=== PATIENT | female | born 1950 | race Caucasian/White ===

== ENCOUNTER 2021-12-27 10:22 | Outpatient (CLI) | payer MEDICARE, OTHER, SELFPAY ==
--- NOTE | 2022-01-02 08:00 | WPDHOLTEREM ---
Holter/Event Monitor Holter/Event Monitor Date of procedure: 12/27/21 Holter/Event Procedure: 48 Hr Holter Monitor Indications: Tachycardia Conclusion: 1. 48 hour holter monitor on 12/27/21. 2. Underlying rhythm is sinus rhythm. HR range 52-135 bpm; average HR 79 bpm. 3. There are 22 premature supraventricular complexes. No supraventricular tachycardia. 4. There are 88 premature ventricular complexes and 1 ventricular couplet. No ventricular tachycardia. 5. No sinoatrial or atrioventricular blocks. No significant pauses greater than 2 seconds. 6. No symptoms available for correlation.
== END 2021-12-27 10:23 | disposition home or self-care (01) ==
PROVIDERS: Visit Provider Student in an Organized Health Care Education/Training Program
DX: R00.0 Tachycardia, unspecified (principal)
CPT/HCPCS: 93225; 93226

== ENCOUNTER 2023-07-28 09:26 | Outpatient (CLI) | payer OTHER, SELFPAY ==
--- NOTE | ~2023-07-28 | DEXA_ITS ---
Bone Density Report Name: JOHNNY BHAGAT Age: 72 Sex: Female Ethnicity: White Date of : 1950 Indication: postmenopausal; screening for osteoporosis; height loss; prior fracture; Referring Provider: CARLA, JEET Study: Bone densitometry was performed. Exam Date: July 28, 2023 Accession number: [id number] Bone Density: Region BMD T-score Z-score Classification AP Spine(L1-L4) 0.999 -0.4 2.0 Normal Femoral Neck (Left) 0.603 -2.2 -0.1 Osteopenia Total Hip (Left) 0.625 -2.6 -0.8 Osteoporosis Femoral Neck (Right) 0.583 -2.4 -0.3 Osteopenia Total Hip (Right) 0.629 -2.6 -0.8 Osteoporosis Total Hip Mean 0.627 -2.6 -0.8 Osteoporosis World Health Organization criteria for BMD impression classify patients as: Normal (T-score at or above -1.0), Osteopenia (T-score between -1.0 and -2.5), or Osteoporosis (T-score at or below -2.5). 10-year Fracture Risk: FRAX not reported because: Some T-score for Spine Total or Hip Total or Femoral Neck at or below -2.5 Treated for osteoporosis Clinical Information Provided by Patient: Has had a low trauma fracture Is being treated for osteoporosis Has used the following medications: Fosamax (i.e. alendronate) Patient maximum height was 70 Menopause Age: 40 Drinks caffeinated beverages Onset of menses at age 11 Number of children 1 Impression: The patient has established osteoporosis, based on the Left Total Hip T-score and the existence of a prior fracture. The patient has risk factors, including: previous fracture. Discussion: It is important to ask patients whether they are taking their medications and to encourage continued and appropriate compliance with their osteoporosis therapies to reduce fracture risk. It is also important to review their risk factors and encourage appropriate calcium and vitamin D intakes, exercise, fall prevention and other lifestyle measures. Follow-Up: Consider a repeat BMD and Vertebral Fracture Assessment (VFA) exam in 2 years or sooner if medically necessary, to reassess this patient's status. Reported by: UVALDO on 07/28/2023 10:15:00 AM. Reviewed, dictated and finalized at location ADebbie CARUSO
--- NOTE | ~2023-07-28 | MM_ITS ---
EXAMINATION: MM screening yvonne BI w lindsey HISTORY: Screening mammogram TECHNIQUE: Craniocaudal and mediolateral oblique 3-D tomosynthesis images were obtained and synthetic 2-D images were generated. Bilateral rotated lateral CC views. CAD analysis was submitted and interp reted. COMPARISON: No prior mammogram is available for comparison at this institution. BREAST PARENCHYMAL COMPOSITION: The breasts are heterogeneously dense, which may obscure small masses . FINDINGS: There are bilateral mammographic asymmetries and bilateral indeterminate microcalcification s. Bilateral diagnostic mammography with magnification views is recommended, in addition to bilateral br east ultrasound examination. IMPRESSION: 1. Bilateral mammographic asymmetries and indeterminate calcifications 2. Bilateral diagnostic mammography and breast ultrasound examination are recommended BI-RADS Category 0: Incomplete: Needs additional imaging evaluation. Reviewed, dictated and finalized at location A. IMPRESSION: 1. Bilateral mammographic asymmetries and indeterminate calcifications 2. Bilateral diagnostic mammography and breast ultrasound examination are recom mended BI-RADS Category 0: Incomplete: Needs additional imaging evaluation.
== END 2023-07-28 09:27 | disposition home or self-care (01) ==
PROVIDERS: Visit Provider Student in an Organized Health Care Education/Training Program
DX: Z12.31 Encounter for screening mammogram for malignant neoplasm of breast (principal); M81.0 Age-related osteoporosis without current pathological fracture; R92.8 Other abnormal and inconclusive findings on diagnostic imaging of breast; M85.852 Other specified disorders of bone density and structure, left thigh; M85.851 Other specified disorders of bone density and structure, right thigh
CPT/HCPCS: 77063; 77067; 77080

== ENCOUNTER 2023-11-03 10:34 | Outpatient (CLI) | payer OTHER, SELFPAY ==
--- NOTE | ~2023-11-03 | MM_ITS ---
EXAMINATION: MM diagnostic yvonne BI w lindsey HISTORY: Bilateral mammographic asymmetries in indeterminate microcalcifications reported on 3 screening mammogram TECHNIQUE: Additional 3-D tomosynthesis images of both breasts were performed and synthetic 2-D image s were generated. Magnification views of the right breast. CAD analysis was submitted and interpreted . COMPARISON: 07/28/2023, 08/15/2020 bilateral screening mammogram examinations 10/10/2019diagnostic right mammogram 06/02/2018 bilateral screening mammogram BREAST PARENCHYMAL COMPOSITION: The breasts are heterogeneously dense, which may obscure small masses . FINDINGS: There is a large area of asymmetric multinodular increased density in the very posterior up per right breast best and axillary area demonstrated on MLO view, consistent with extravasated silico ne from prior implant, with similar finding noted on 08/15/2020 mammogram..Saline implant is again par tially imaged in the right posterior subpectoral area. There are scattered bilateral benign-appearing microcalcifications. No suspicious linear or branching microcalcifications are noted. No interval suspicious mass or new architectural distortion, skin thickening or retraction is evident . IMPRESSION: 1. Benign findings 2. Routine annual mammographic screening is recommended BI-RADS Category 2: Benign finding(s). Reviewed, dictated and finalized at location A. CATION COORDINATOR
== END 2023-11-03 10:35 | disposition home or self-care (01) ==
PROVIDERS: Visit Provider Student in an Organized Health Care Education/Training Program
DX: R92.8 Other abnormal and inconclusive findings on diagnostic imaging of breast (principal)
CPT/HCPCS: 77062; 77066; G0279

== ENCOUNTER 2024-10-25 13:31 | Outpatient (CLI) | payer OTHER, SELFPAY ==
--- NOTE | ~2024-10-25 | US_ITS ---
Left forearm ULTRASOUND Ordering provider: Rod Gómez, DO History: . L arm swelling . Comparison: None. FINDINGS/impression: No definite masses or other abnormality seen. Reviewed, dictated and finalized at location A. R SALES ENERGY ADVISOR
== END 2024-10-25 13:32 | disposition home or self-care (01) ==
PROVIDERS: PCP Student in an Organized Health Care Education/Training Program; Visit Provider Student in an Organized Health Care Education/Training Program
DX: M79.89 Other specified soft tissue disorders (principal)
CPT/HCPCS: 76882

== ENCOUNTER 2025-03-28 10:10 | Outpatient (CLI) | payer MEDICARE, OTHER, MEDICAID, SELFPAY ==
--- NOTE | ~2025-03-28 | MM_ITS ---
EXAMINATION: MM screening [facility] BI w [facility] HISTORY: Screening mammogram TECHNIQUE: Craniocaudal and mediolateral oblique 3-D tomosynthesis images were obtained and synthetic 2-D images were generated. CAD analysis was submitted and interpreted. COMPARISON: 07/28/2023, 08/15/2020 BREAST PARENCHYMAL COMPOSITION:Not Dense. There are scattered areas of fibroglandular density. FINDINGS: Stable irregular areas of marked hyperdensity in the upper, posterior right breast compatib le with extravasated silicone from right breast implant. Findings are similar to prior exam. No suspi cious mass, calcification, or architectural distortion are identified in either breast to suggest mal ignancy. There has been no suspicious interval change. IMPRESSION: No mammographic evidence of malignancy. Recommend routine screening mammography in one year. BI-RADS Category 2: Benign finding(s). Reviewed, dictated and finalized at [facility].
--- OUTSIDE RECORDS SUMMARY | 2025-03-28 10:23 | XMS_ITS | Clinical Summary ---
Author Organization [facility] Address [address] [place] [address] Care Team Providers Care Junior Web Developer Name Role Phone Rod Gómez Primary Care Provider + Allergies Active Allergy Reactions Criticality Noted Date Comments Codeine Nausea and Vomiting Medium 03/29/2014 Medications alendronate (FOSAMAX) 70 MG tabletIndications:Osteoa rthrosis Take 1 tablet (70 mg total) by mouth every 7 days. 12 tablet 02/26/20 24 Active aspirin EC (ECOTRIN) 81 MG tabletIndications:Chroni c heart failure with preserved ejection fraction (CMS/HCC HHS/HCC) Take 1 tablet (81 mg total) by mouth daily. 90 tablet 02/26/20 24 Active carvedilol (COREG) 6.25 MG tabletIndications:Chroni c heart failure with preserved ejection fraction (CMS/HCC HHS/HCC) Take 1 tablet (6.25 mg total) by mouth 2 (two) times daily. 180 tablet 02/26/20 24 Active furosemide (LASIX) 40 MG tabletIndications:Swelli ng of lower extremity,Chronic heart failure with preserved ejection fraction (CMS/HCC HHS/HCC) Take 1 tablet (40 mg total) by mouth daily as needed (swelling). 90 tablet 02/26/20 24 Active lisinopril (PRINIVIL) 10 MG tabletIndications:Essent ial hypertension Take 1 tablet (10 mg total) by mouth daily. 30 tablet 02/26/20 24 Active rosuvastatin (CRESTOR) 5 MG tabletIndications:Pure hypercholesterolemia Take 1 tablet (5 mg total) by mouth nightly at bedtime. at bedtime. 90 tablet 02/26/20 24 Active vitamin D3 (VITAMIN D) 25 mcg tabletIndications:Vitami n D deficiency Take 1 tablet (1,000 Units total) by mouth daily. 90 tablet 02/26/20 24 Active acetaminophen (TYLENOL) 500 MG tabletIndications:Chroni c pain of both knees Take 2 tablets (1,000 mg total) by mouth every 8 (eight) hours as needed for Pain. 180 tablet 11 09/20/20 24 Active clonazePAM (KLONOPIN) 0.25 MG disintegrating tabletIndications:Recurr ent major depressive disorder, in full remission Take 1 tablet (0.25 mg total) by mouth 3 (three) times daily as needed. 90 tablet 09/20/20 24 Active Active Problems Problem Noted Date Diagnosed Date Takotsubo cardiomyopathy 01/27/2022 Dyspnea 09/21/2020 Leg cramps 07/10/2020 Overview (05/16/2021): Last Assessment & Plan: Current disease status: Symptomatic. Recommend she maintain good hydration. She may continue with bananas over the near future. She might consider 4 ounces of tonic water with quinine prior to bedtime. She might also consider magnesium supplementation. If her symptoms would persist we could try other agents for restless legs. Personal history of DVT (deep vein thrombosis) 0 05/01/2019 Overview (05/16/2021): Last Assessment & Plan: Current disease status: Stable. Recommend she continue to remain as active as she is able. She will continue aspirin 81 mg once daily. She may consider compressive hose or socks when necessary. Increased glucose level 03/16/2019 Overview (05/16/2021): Last Assessment & Plan: Current disease status: Asymptomatic. Recommend she have a hemoglobin A1c performed with her next blood draw. She was encouraged to be vigilant of her diet regarding sweets and refined carbohydrates. Primary localized osteoarthrosis of left lower l eg 12/24/2018 Overview (05/16/2021): Last Assessment & Plan: Current disease status: Stable. See recommendation for osteoarthritis. Pleuritic chest pain 11/29/2018 Age-related osteoporosis wit hout current pathological fracture 09/23/2017 Overview (05/16/2021): MEDICATION(S): Alendronate 70 mg 1 tablet once weekly. FRAX CALCULATION: Date of Bone Density: 05/27/2017. 38.5 % risk for major osteoporotic fracture (spine, forearm, hip, or shoulder fracture) in the next 10 years. 17.6 % risk for hip fracture in the next 10 years. Last Assessment & Plan: Current disease status: Stable Last T-score: -2.7 left femoral neck 06/2020. Osteoporosis/Osteopenia is a silent disease until complicated by the occurrence of a fracture. Recommendations include a diet that contains adequate amounts of total calcium intake (1,000 mg per day for men 50-70; 1,200 mg per day for women 51 and older and men 71 and older), incorporating dietary supplements if diet is insufficient. Calcium citrate is preferred calcium supplement when taking acid reducing medication. Recommend Vitamin D intake (800 - 1,000 IU per day), including supplements if necessary for individuals 50 and older. Recommend regular weight-bearing, balance and muscle-strengthening exercise to improve agility, strength, posture and balance; maintain or improve bone strength; and reduce the risk of falls and fractures. Recommend she continue alendronate 70 mg 1 tablet once daily. This was started 07/2017. Chronic left hip pain 03/18/2017 Overview (05/16/2021): Last Assessment & Plan: Current disease status: Improving. She reports that she had cortisone injection with Dr. Seth which has been quite helpful. She is also doing range of motion and stretching exercises. Chronic right-sided low back pain with sciatica 03/19/2016 Overview (05/16/2021): Last Assessment & Plan: Would recommend the application of moist heat 15-20 minutes per session 4-6 times daily if possible. Would also recommend gentle range of motion and stretching exercises. Recommend she continue to remain as active as she is able. She'll continue with meloxicam. She'll continue with tramadol for more severe pain when necessary. She should notify the office of any concerning development. Headache 12/27/2014 Insomnia 12/27/2014 Overview (05/16/2021): Last Assessment & Plan: Current disease status: Symptomatic. She may consider clonazepam 0.25 mg prior to bedtime as needed. She should notify the office of any concerns. Disorder of bone and cartilage 03/29/2014 Overview (05/16/2021): Last Assessment & Plan: Osteoporosis is a silent disease until complicated by the occurrence of a fracture. Recommendations include a diet that contains adequate amounts of total calcium intake (1,000 mg per day for men 50-70; 1,200 mg per day for women 51 and older and men 71 and older), incorporating dietary supplements if diet is insufficient. Recommend Vitamin D intake (800 - 1,000 IU per day), including supplements if necessary for individuals 50 and older. Recommend regular weight-bearing and muscle- strengthening exercise to improve agility, strength, posture and balance; maintain or improve bone strength; and reduce the risk of falls and fractures. Essential hypertension 03/29/2014 Overview (05/16/2021): MEDICATION(S): Lisinopril 5 mg 1 tablet by mouth once daily. Carvedilol (COREG) 6.25 mg 1 tablet by mouth 2 times daily with meals. Last Assessment & Plan: Current disease status: Stable. BP Readings from Last 3 Encounters: 01/09/21 110/62 09/21/20 (!) 147/83 07/25/20 (!) 143/72 She was advised to monitor her blood pressure. If she would consistently have systolic readings in excess of 140 and/or diastolic readings consistently above 90 she was advised to notify the office. Recommend eating a heart healthy diet limiting daily salt intake to 2000 mg. Recommend trying to maintain a healthy body weight. Aerobic exercise is beneficial. High blood pressure silently causes progressive damage to arteries and veins. This can lead to atherosclerosis (hardening of the arteries) with plaque formation and decreased blood flow. Organ systems affected include the BRAIN (with vascular dementia, TIA and stroke risk); KIDNEY (uncontrolled high blood pressure is the most common cause of kidney failure leading to dialysis) and HEART (with increased risk for heart attack and congestive heart failure. Peripheral vascular disease and retinal changes in the eye can also result from elevated blood pressure. Early intervention is critical to prevent these developments. Recommend she continue lisinopril 5 mg 1 tablet once daily and carvedilol 6.25 mg 1 tablet twice daily. Osteoarthrosis 03/29/2014 Overview (05/16/2021): Last Assessment & Plan: Current disease status: Stable and Symptomatic. Recommend she continue to try and remain as active as she is able. She has considerable arthritic changes involving her knees. She does not feel that she is at a point where she wants to pursue total knee arthroplasty. She may consider Tylenol when necessary. She has tried various injections which have not been helpful. She should notify the office of any concerning development. Personal history of colonic polyps 03/29/2014 Pure hypercholesterolemia 03/29/2014 Overview (05/16/2021): Last Assessment & Plan: Current disease status: Stable She was advised to be vigilant of her diet especially with regards to reducing foods containing saturated fat, cholesterol, simple sugars, refined carbohydrates, and processed food. Recommend lean meats, fruits, vegetables, and whole grains. Recommend at least 30 minutes of moderate intensity exercise 5 days a week. Your last cholesterol values are as follows: Lab Results Component Value Date/Time CHOLTOT 154 11/30/2018 04:44 AM CHOLTOT 184 03/24/2017 09:08 AM CHOLTOT 181 06/05/2015 09:08 AM HDL 58 11/30/2018 04:44 AM HDL 71 (H) 03/24/2017 09:08 AM HDL 82 (H) 06/05/2015 09:08 AM LDLCALC 81 11/30/2018 04:44 AM LDLCALC 88 03/24/2017 09:08 AM LDLCALC 84 06/05/2015 09:08 AM TRIGLYCERIDE 75 11/30/2018 04:44 AM TRIGLYCERIDE 126 03/24/2017 09:08 AM TRIGLYCERIDE 76 06/05/2015 09:08 AM Recommend she continue with her dietary efforts. She will try to have laboratory studies performed in the near future. Resolved Problems Problem Noted Date Diagnosed Date Resolved Date Cardiomyopathy ([facility] 05/16/2021 05/20/2021 Overview (05/16/2021): MEDICATION(S): Lisinopril 5 mg 1 tablet by mouth once daily. Carvedilol (COREG) 6.25 mg 1 tablet by mouth 2 times daily with meals. Last Assessment & Plan: Current disease status: Stable. Recommend she continue to try and remain as active as she is able. She should continue with her cardiology evaluation and treatment with Dr. Buenrostro. She will continue lisinopril 5 mg 1 tablet once daily and carvedilol 6.25 mg twice daily. Pericarditis in diseases cla ssified elsewhere ([facility]) 05/16/2021 05/16/2021 Moderate episode of recurren t major depressive disorder 09/21/2019 09/20/2024 Overview (05/16/2021): MEDICATION(S): Clonazepam 0.25 mg 1 tablet 3 times daily as needed. Last Assessment & Plan: Positive: PHQ-2 score >= 3 or PHQ-9 score >= 9 PHQ-2 Total: 0 (07/10/2020 10:00 AM) PHQ-9 Total: 3 (07/10/2020 10:00 AM) DEPRESSION PLAN OF CARE Her antidepressant medication was reviewed PHQ-2 & PHQ-9 Status: Major Depression Recurrent Moderate - Stable Plan: Responding well to current treatment plan, continue. Medications reviewed and refilled as indicated. See orders. She was encouraged to remain as active as she is able. Recommend she continue clonazepam 0.25 mg up to 3 times daily as needed. She should notify the office of any mood concerns. The suicide prevention lifeline can be reached at: [phone]. Encounters Date Type Department Care Team Description 01/25/2025 Scan [facility] INFO [facility] Scanned, Doc Med Group from Last 3 Months Immunizations Immunization Administration Dates Next Due Fluzone High Dose - >Age 65 (Prefilled Syringe) 08/27/2021,07/20/2020 Influenza (Generic) 09/01/2024, 9,08/03/2018,2016,08/27/2016,08/22/2015,08/19/2013 Influenza Adult (Generic) 09/10/2023,08/20/2022, 08/27/2021 MODERNA COVID-19 (12+) MRNA, LNP-S, PF, 100 MCG/ 0.5 ML DOSE 05/10/2021,04/12/2021 PFIZER COVID-19 (REDDY CAP), MRNA, LNP-S, PF, 30 MCG/0.3 ML JALEN-SUCROSE, IM 05/02/2022 Pneumococcal (Pneumovax 23) 03/18/2017 Pneumococcal (Prevnar 13) 10/16/2015 Family History Medical History Relation Comments pancreatic cancer Brother Cancer Father throat Heart Attack Mother Hypertension Mother Alzheimers Paternal Grandmother Relation Status Comments Brother Father Mother Paternal Grandmother Social History Tobacco Use Types Packs/Day Years Used Date Smoking Tobacco: Former Cigarettes 0.5 19 1 966 - 1985 Smokeless Tobacco: Never Tobacco Cessation:Counseling Given: Not Answered Alcohol Use Standard Drinks/Week Comments Yes 1.7 (1 standard drink = 0.6 oz p ure alcohol) less than one time a week PHQ-2 Answer Date Recorded Patient Health Questionnaire-2 Score 0 09/20/2024 Comments No Sex and Gender Information Value Date Recorded Sex Assigned at Not on file Legal Sex Female 10:11 AM CDT Gender Identity Not on file Sexual Orientation Not on file Last Filed Vital Signs Vital Sign Reading Time Taken Comments Blood Pressure 114/78 09/20/2024 12:43 PM ICE CREAM DIPPER Pulse 77 09/20/2024 12:43 PM ICE CREAM DIPPER Temperature 36.6 C (97.8 F) 09/20/2024 12:43 PM ICE CREAM DIPPER Respiratory Rate 18 09/20/2024 12:43 PM ICE CREAM DIPPER Oxygen Saturation 97% 09/20/2024 12:43 PM ICE CREAM DIPPER Inhaled Oxygen Concentration - - Weight 95.5 kg (210 lb 9.6 oz) 09/20/2024 12:43 PM ICE CREAM DIPPER Height 175.3 cm (5' 9 ) 09/20/2024 12:43 PM ICE CREAM DIPPER Body Mass Index 31.1 09/20/2024 12:43 PM ICE CREAM DIPPER Plan of Treatment Upcoming Encounters Date Type Department Care Team (Late st Contact Info) Description 06/27/2025 9:20 AM CDT Office Visit [facility] Family & Internal [address] [phone] Rod Gómez, DO [address] [place] [id number] 06/27/2025 10:20 AM CDT Office Visit [facility] Internal [address] [phone] Rod Gómez, DO [address] [place] [address] Health Maintenance Due Date Last Done Comments DTaP, Tdap and Td Vaccines (1 - Tdap) 1969 Annual Medicare Wellness Visit 2013 RSV Immunization or 60+ Years (1 - 1-dose 75+ series) 2023 PHQ-2 (Physician [place]) 11/16/2024 09/20/2024 Zoster Vaccines (1 of 2) 09/20/2025 Pos tponed from 1998 (Patient Refused) COVID-19 Vaccine ( season) 2112 05/02/2022, 05/10/2021, 04/12/2021 Postponed from 07/17/2024 (Going to Outside Clinic) Pneumococcal Vaccine: 50+ Years Completed 03/18/2017, 10/16/2015 Colorectal Cancer Screening Colonoscopy (10 Years) Discontinued 07/02/2018 Hepatitis C Completed 10/07/2022 Dexa Scan (General) Completed 07/28/2023, 08/15/2020, 08/15/2020, Additional history exists Meningococcal B Vaccine Aged Out No l onger eligible based on patient's age to complete this topic Meningococcal Vaccine Aged Out No ej tasha eligible based on patient's age to complete this topic RSV Immunizations Under 20 Months Aged Out No longer eligible based on patient's age to complete this topic Procedures Procedure Name Priority Date/Time Associated Diagnosis Comments BONE DENSITY GENERIC (SCAN ORDER) Routine 07/28/2023 HEPATITIS C ANTIBODY Routine 10/07/2022 11:28 AM ICE CREAM DIPPER Pure hypercholesterolemia Age-related osteoporosis without current pathological fracture Takotsubo cardiomyopathy Vitamin D deficiency Need for hepatitis C screening test COLONOSCOPY GENERIC (SCAN ORDER) Routine 07/02/2018 from Last 3 Months or Most Recently Relevant to Health Maintenance Results * BONE DENSITY (07/28/2023) Anatomical Region Laterality Modality Other us Doc Med Group Scanned SCANNING Final Resu lt * HEPATITIS C ANTIBODY (10/07/2022 11:28 AM ICE CREAM DIPPER) HEPATITIS C AB NON-REACTI VE NON-REACT SANDRA 10/07/2022 10:10 PM ICE CREAM DIPPER [facility] Comment: ANTIBODIES TO HCV NOT DETECTED. DOES NOT EXCLUDE THE POSSIBILITY OF EXPOSURE TO HCV. 10/07/2022 11:2 8 AM ICE CREAM DIPPER Rod Gómez DO LABORATORY Final Re sult [facility] [address] [place] [address], [place] [phone] [id number] * COLONOSCOPY (07/02/2018) Documents Scanned SCANNING Final Result Performing Organization Address [facility]/State/ZIP Co de Phone Number [facility] from Last 3 Months or Most Recently Relevant to Health Maintenance Insurance [facility]ICARE [facility] [place] [address] [place] [address] Advance Directives Documents on File Type Date Recorded Patient Traffic Control Signaler Expl anation Advance Directives and Livin g Will 10/20/2022 7:55 AM POLST Care Teams Junior Web Developer Relationship Specialty Start Date End Date Rod Gómez DO [address] [place] [id number] PCP - General FAMILY PRACTICE 05/16/21
--- OUTSIDE RECORDS SUMMARY | 2025-03-28 10:23 | XMS_ITS | Clinical Summary ---
Author Organization [facility] Medical Office [place] Address [address] [address] [place] [id number] Care Team Providers Care Research Home Economist Name Role Phone Unavailable Primary Care Provider Unavailabl e Allergies Active Allergy Reactions Criticality Noted Date Comments Codeine Nausea and Vomiting Medium 03/29/2014 Medications aspirin (ECOTRIN EC) 81 mg Tablet, Delayed Release (E.C.) Take 81 mg by mouth daily. Active lisinopriL (PRINIVIL) 10 mg tablet TAKE 1 TABLET BY MOUTH EVERY DAY 90 Tablet 6 0 Active alendronate (FOSAMAX) 70 mg tabletIndications :Age-related osteoporosis without current pathological fracture TAKE 1 TABLET BY MOUTH EVERY 7 DAYS ON EMPTY STOMACH WITH 8OZ OF WATER AND STAY UPRIGHT FOR 30 MINUTES. TAKE BEFORE OTHER MEDICATIONS. 12 Tablet 3 1 Active carvediloL (COREG) 3.125 mg tablet TAKE 2 TABLETS (6.25 MG) BY MOUTH 2 TIMES DAILY WITH MEALS. 360 Tablet 1 1 Active clonazePAM (KlonoPIN RAPID DISSOLVE) 0.25 mg Tablet, Rapid DissolveIndicatio ns:Moderate episode of recurrent major depressive disorder (CMS/HCC) DISSOLVE 1 TABLET (0.25 MG) BY MOUTH 3 TIMES DAILY NEEDED FOR ANXIETY. 45 Tablet 1 Active Active Problems Patient Care Coordination No te Formatting of this note migh t be different from the original. Video Production Assistant - Jan Buenrostro MD Problem Noted Date Diagnosed Date Dyspnea 09/21/2020 Leg cramps 07/10/2020 Assessment & Plan (07/10/2020 10:58 AM CDT): Current disease status: Symptomatic. Recommend she maintain good hydration. She may continue with bananas over the near future. She might consider 4 ounces of tonic water with quinine prior to bedtime. She might also consider magnesium supplementation. If her symptoms would persist we could try other agents for restless legs. Moderate episode of recurrent major depressive d isorder 09/21/2019 Overview (01/10/2020): MEDICATION(S): Clonazepam 0.25 mg 1 tablet 3 times daily as needed. Assessment & Plan (01/09/2021 10:51 AM DISBURSING OFFICER): Positive: PHQ-2 score >= 3 or PHQ-9 [...] suicide prevention lifeline can be reached at: [phone]. Assessment & Plan (07/10/2020 10:57 AM CDT): Positive: PHQ-2 score >= 3 or PHQ-9 score >= 9 PHQ-2 Total: 0 (07/10/2020 10:00 AM) PHQ-9 Total: 3 (07/10/2020 10:00 AM) DEPRESSION PLAN OF CARE Her antidepressant medication was reviewed PHQ-2 & PHQ-9 Little interest or pleasure in doing things:: Not at all (07/10/20999) Feeling down, depressed, or hopeless:: Not at all (07/10/20999) PHQ-2 Total: 0 (07/10/20999) Trouble falling or staying asleep, or sleeping too much:: More than half the days (07/10/20999) Feeling tired or having little energy:: Several Days (07/10/20999) Poor appetite or overeating:: Not at all (07/10/20999) Feeling bad about yourself-or that you are a failure or have let yourself or your family down:: Not at all (07/10/20999) Trouble concentrating on things, such as reading the newspaper or watching television:: Not at all (07/10/20999) Moving or speaking so slowly that other people could have noticed. Or the opposite-being so fidgety or restless that you have been moving around a lot more than usual:: Not at all (07/10/20999) Thoughts that you would be better off , or of hurting yourself in some way:: Not at all (07/10/20999) PHQ-9 Total: 3 (07/10/20999) Status: Major Depression Recurrent Mild - Stable Plan: Responding well to current treatment plan, continue. Medications reviewed and refilled as indicated. See orders. Recommend she continue to remain as active as she is able. She will continue with Klonopin 0.25 mg up to 3 times daily as needed. She should notify the office of any mood concerns. Assessment & Plan (02/27/2020 11:20 AM CDT): Positive: PHQ-2 score >= 3 or PHQ-9 score >= 9 PHQ-2 Total: 1 (09/21/2019 3:11 PM) DEPRESSION PLAN OF CARE Her antidepressant medication was reviewed PHQ-2 & PHQ-9 Status: Major Depression Recurrent Moderate - Stable Plan: Responding well to current treatment plan, continue. Medications reviewed and refilled as indicated. See orders. Recommend she continue to remain as active as she is able. She feels that she is coping well at this time. She notes that she had been taken clonazepam 3 times daily. She was encouraged to continue with this on an as-needed basis. She should notify the office of any concerning development. Assessment & Plan (01/10/2020 9:31 AM DISBURSING OFFICER): Positive: PHQ-2 score >= 3 or PHQ-9 score >= 9 PHQ-2 Total: 1 (09/21/2019 3:11 PM) DEPRESSION PLAN OF CARE Her antidepressant medication was reviewed PHQ-2 & PHQ-9 Status: Major Depression Recurrent Mild - Stable Plan: Responding well to current treatment plan, continue. Medications reviewed and refilled as indicated. See orders. She reports that she discontinued Paxil. She did not like the way it made her feel. She feels that she is coping well at this time. She should continue with clonazepam 0.25 mg up to 3 times daily as needed. She should continue to remain as active as she is able. She should notify the office of any mood concerns. Assessment & Plan (09/21/2019 4:07 PM DISBURSING OFFICER): Positive: PHQ-2 score >= 3 or PHQ-9 score >= 9 PHQ-2 Total: 1 (09/21/2019 3:11 PM) DEPRESSION PLAN OF CARE She was given a prescription for an antidepressant PHQ-2 & PHQ-9 Little interest or pleasure in doing things:: Not at all (09/21/191510) Feeling down, depressed, or hopeless:: Several Days (09/21/191510) PHQ-2 Total: 1 (09/21/191510) Status: Major Depression Recurrent Moderate - Suboptimal control Plan: New Onset. Discussed healthy lifestyle. Also start medication as per orders. Possible SE and expected onset of action reviewed. Recommend starting Paxil 20 mg 1 tablet once daily. She was given a prescription of Klonopin 0.25 mg which she may use up to 3 times daily as needed. She was encouraged to remain as active as she is able. She should notify the office of any mood concerns. Personal history of DVT (deep vein thrombosis) 0 05/01/2019 Assessment & Plan (01/09/2021 10:54 AM DISBURSING OFFICER): Current disease status: Stable. Recommend she continue to remain as active as she is able. She will continue aspirin 81 mg once daily. She may consider compressive hose or socks when necessary. Assessment & Plan (01/10/2020 9:31 AM DISBURSING OFFICER): Current disease status: Stable. Recommend she continue with aspirin 81 mg 1 tablet once daily. Assessment & Plan (09/21/2019 4:09 PM DISBURSING OFFICER): Current disease status: Stable. Recommend she continue with aspirin 81 mg 1 tablet once daily. She should continue with her hematology evaluation and treatment with Dr. Andrews. Elevated glucose 03/16/2019 Assessment & Plan (03/16/2019 10:19 AM CDT): Current disease status: Asymptomatic. Recommend she have a hemoglobin A1c performed with her next blood draw. She was encouraged to be vigilant of her diet regarding sweets and refined carbohydrates. Hospital discharge follow-up 12/24/2018 Assessment & Plan (02/27/2020 11:23 AM CDT): Transitional Care Attestation Lorri Miller was discharged from Inpatient on 02/23/20. Interactive communication regarding the patient's post discharge date status as documented in the patient outreach encounter. . Discharge summary obtained and reviewed yes Current and discharge medications reviewed and reconciled Yes Pertinent studies from the hospitalization, SNF or other acute stay were reviewed (including pending studies) yes Patient/Caregiver/Family education performed yes Communication with home health was performed (if needed) n/a Assessment & Plan (12/24/2018 2:14 PM DISBURSING OFFICER): Transitional Care Attestheydi Miller was discharged from Inpatient on 12/01/18. Interactive communication regarding the patient's post discharge date status. Her follow-up interval exceeds 2 weeks. Discharge summary obtained and reviewed yes Current and discharge medications reviewed and reconciled Yes Pertinent studies from the hospitalization, SNF or other acute stay were reviewed (including pending studies) yes Patient/Caregiver/Family education performed yes Communication with home health was performed (if needed) no Primary localized osteoarthrosis of left lower l eg 12/24/2018 Assessment & Plan (03/16/2019 10:18 AM CDT): Current disease status: Stable. See recommendation for osteoarthritis. Assessment & Plan (12/24/2018 2:11 PM DISBURSING OFFICER): Current disease status: Symptomatic. Would recommend a trial of diclofenac gel applied up to 4 times daily to the left knee. She should try to remain as active as she is able. She could try Tylenol arthritis in addition. She should notify the office of any concerns. Pleuritic chest pain 11/29/2018 Age-related osteoporosis wit hout current pathological fracture 09/23/2017 Overview (01/10/2020): MEDICATION(S): Alendronate 70 mg 1 tablet once weekly. FRAX CALCULATION: Date of Bone Density: 05/27/2017. 38.5 % risk for major osteoporotic fracture (spine, forearm, hip, or shoulder fracture) in the next 10 years. 17.6 % risk for hip fracture in the next 10 years. Assessment & Plan (01/09/2021 10:53 AM DISBURSING OFFICER): Current disease status: Stable Last T-score: -2.7 [...] tablet once daily. This was started 07/2017. Assessment & Plan (07/10/2020 10:58 AM CDT): Current disease status: Stable Osteoporosis/Osteopenia is a silent disease until complicated [...] 50 and older. Recommend regular weight-bearing and muscle-strengthening exercise to improve agility, strength, posture and balance; maintain or improve bone strength; and reduce the risk of falls and fractures. She will have a bone density scan performed. She should continue with alendronate 70 mg 1 tablet once daily. Assessment & Plan (02/27/2020 11:22 AM CDT): Current disease status: Stable Osteoporosis/Osteopenia is a silent disease until complicated [...] 50 and older. Recommend regular weight-bearing and muscle-strengthening exercise to improve agility, strength, posture and balance; maintain or improve bone strength; and reduce the risk of falls and fractures. Recommend she continue with alendronate 70 mg 1 tablet once weekly. Assessment & Plan (01/10/2020 9:30 AM DISBURSING OFFICER): Current disease status: Stable Osteoporosis/Osteopenia is a silent disease until complicated [...] 50 and older. Recommend regular weight-bearing and muscle-strengthening exercise to improve agility, strength, posture and balance; maintain or improve bone strength; and reduce the risk of falls and fractures. Recommend she continue with alendronate 70 mg 1 tablet once weekly. She should have a bone density scan performed this summer. Assessment & Plan (09/21/2019 4:07 PM DISBURSING OFFICER): Current disease status: Stable Osteoporosis/Osteopenia is a silent disease until complicated [...] 50 and older. Recommend regular weight-bearing and muscle-strengthening exercise to improve agility, strength, posture and balance; maintain or improve bone strength; and reduce the risk of falls and fractures. Recommend she continue with Fosamax 70 mg 1 tablet once weekly. Assessment & Plan (03/16/2019 10:17 AM CDT): Current disease status: Stable Osteoporosis/Osteopenia is a silent disease until complicated [...] 50 and older. Recommend regular weight-bearing and muscle-strengthening exercise to improve agility, strength, posture and balance; maintain or improve bone strength; and reduce the risk of falls and fractures. Recommend she continue with Fosamax 70 mg once weekly. Assessment & Plan (12/24/2018 2:10 PM DISBURSING OFFICER): Current disease status: Stable Osteoporosis/Osteopenia is a silent disease until complicated [...] 50 and older. Recommend regular weight-bearing and muscle-strengthening exercise to improve agility, strength, posture and balance; maintain or improve bone strength; and reduce the risk of falls and fractures. Recommend she continue with Fosamax 70 mg once weekly. Assessment & Plan (2018 10:22 AM DISBURSING OFFICER): Current disease status: Stable Osteoporosis/Osteopenia is a silent disease until complicated [...] 50 and older. Recommend regular weight-bearing and muscle-strengthening exercise to improve agility, strength, posture and balance; maintain or improve bone strength; and reduce the risk of falls and fractures. Recommend she continue with Fosamax 70 mg 1 tablet once weekly. Assessment & Plan (03/24/2018 9:43 AM CDT): Current disease status: Stable Osteoporosis/Osteopenia is a silent disease until complicated [...] 50 and older. Recommend regular weight-bearing and muscle-strengthening exercise to improve agility, strength, posture and balance; maintain or improve bone strength; and reduce the risk of falls and fractures. Recommend she continue with Fosamax. Assessment & Plan (09/23/2017 9:37 AM DISBURSING OFFICER): Current disease status: Asymptomatic Osteoporosis/Osteopenia is a silent disease until complicated [...] 50 and older. Recommend regular weight-bearing and muscle-strengthening exercise to improve agility, strength, posture and balance; maintain or improve bone strength; and reduce the risk of falls and fractures. FRAX CALCULATION: Date of Bone Density: 05/27/2017. 38.5 % risk for major osteoporotic fracture (spine, forearm, hip, or shoulder fracture) in the next 10 years. 17.6 % risk for hip fracture in the next 10 years. Chronic left hip pain 03/18/2017 Assessment & Plan (03/24/2018 9:44 AM CDT): Current disease status: Improving. She reports that she had cortisone injection with Dr. Seth which has been quite helpful. She is also doing range of motion and stretching exercises. Assessment & Plan (09/23/2017 9:36 AM DISBURSING OFFICER): Current disease status: Symptomatic. Her x-ray of the left hip was reviewed. She is tender over the greater trochanter. She may have trochanteric bursitis. Would recommend orthopedic referral with Dr. Seth for further evaluation. Assessment & Plan (03/18/2017 10:10 AM CDT): Symptomatic. Recommend she have an x-ray of the left hip performed. Recommend discontinuing meloxicam and trying diclofenac 75 mg once or twice daily as necessary. If her symptoms persist or worsen or there are significant findings on x-ray would recommend orthopedic referral. Chronic right-sided low back pain with sciatica 03/19/2016 Assessment & Plan (09/17/2016 9:58 AM CDT): Would recommend the application of moist heat 15-20 minutes per session 4-6 times daily if possible. Would also recommend gentle range of motion and stretching exercises. Recommend she continue to remain as active as she is able. She'll continue with meloxicam. She'll continue with tramadol for more severe pain when necessary. She should notify the office of any concerning development. Assessment & Plan (05/07/2016 3:03 PM CDT): Would recommend the application of moist heat 15-20 minutes per session 4-6 times daily if possible. Would also recommend gentle range of motion and stretching exercises. Recommend she continue to try to remain as active as she is able. She'll continue with meloxicam when necessary. She'll continue with Flexeril when necessary. She'll continue with Ultram for more significant pain when necessary. She should notify the office of any concerning development. Assessment & Plan (03/19/2016 9:49 AM CDT): Would recommend the application of moist heat 15-20 minutes per session 4-6 times daily if possible. Would also recommend gentle range of motion and stretching exercises. Recommend she continue with meloxicam. She was given a prescription of Flexeril to use mainly prior to bedtime to help with muscle relaxation. She was given a prescription of tramadol to use for more severe pain when necessary. She should try to use tramadol as least often as she is able. She'll have an x-ray of the lumbar spine performed. Stress 03/19/2016 Assessment & Plan (12/24/2018 2:11 PM DISBURSING OFFICER): Current disease status: Symptomatic. Recommend she continue to remain as active as she is able. She notes that Klonopin has been helpful. She feels that she is coping adequately. She should notify the office of any concerning development. Assessment & Plan (2018 10:22 AM DISBURSING OFFICER): Current disease status: Stable. Recommend she continue to remain as active as she is able. She will continue with clonazepam 0.5 mg once daily prior to bedtime as needed. She should notify the office of any mood concerns. Assessment & Plan (03/24/2018 9:43 AM CDT): Current disease status: Stable. She feels that she is coping well at this point in time. Continue to remain as active as she is able. She will continue with clonazepam when necessary. She should notify the office of any mood concerns. Assessment & Plan (03/19/2016 9:50 AM CDT): Recommend she continue to try remain as active as she is able. She'll continue with Klonopin when necessary. She should notify the office of any worsening. Medicare annual wellness visit, initial 10/16/20 15 Headache 12/27/2014 Insomnia 12/27/2014 Assessment & Plan (09/21/2019 4:08 PM DISBURSING OFFICER): Current disease status: Symptomatic. She may consider clonazepam 0.25 mg prior to bedtime as needed. She should notify the office of any concerns. Assessment & Plan (03/16/2019 10:18 AM CDT): Current disease status: Stable. Recommend she continue with clonazepam 0.5 mg prior to bedtime as needed. Assessment & Plan (2018 10:22 AM DISBURSING OFFICER): Current disease status: Stable. Recommend she continue with clonazepam 0.5 mg prior to bedtime when necessary. Assessment & Plan (03/24/2018 9:44 AM CDT): Current disease status: Stable. Recommend she continue with clonazepam when necessary. Assessment & Plan (03/18/2017 10:09 AM CDT): Stable. Recommend she continue with Klonopin when necessary. Assessment & Plan (09/17/2016 9:58 AM CDT): Recommend she continue with Klonopin when necessary. Assessment & Plan (05/07/2016 3:03 PM CDT): She may continue with Klonopin when necessary. Essential hypertension 03/29/2014 Overview (07/10/2020): MEDICATION(S): Lisinopril 5 mg 1 tablet by mouth once daily. Carvedilol (COREG) 6.25 mg 1 tablet by mouth 2 times daily with meals. Assessment & Plan (01/09/2021 10:54 AM DISBURSING OFFICER): Current disease status: Stable. BP Readings from [...] carvedilol 6.25 mg 1 tablet twice daily. Assessment & Plan (07/10/2020 10:57 AM CDT): Current disease status: Stable and Controlled. BP Readings from Last 3 Encounters: 07/10/20 104/70 06/18/20 (!) 155/90 03/19/20 132/68 She was advised to monitor her blood [...] to prevent these developments. Recommend she continue carvedilol 6.25 mg 1 tablet twice daily and lisinopril 5 mg 1 tablet once daily. Assessment & Plan (02/27/2020 11:20 AM CDT): Current disease status: Stable. BP Readings from Last 3 Encounters: 02/23/20 113/62 01/25/20 122/67 01/10/20 110/72 She was advised to monitor her blood [...] to prevent these developments. Recommend she continue with carvedilol 3.125 mg 1 tablet once daily and lisinopril 2.5 mg 1 tablet once daily. Assessment & Plan (01/10/2020 9:29 AM DISBURSING OFFICER): Current disease status: Stable and Controlled. BP Readings from Last 3 Encounters: 01/10/20 110/72 10/28/19 127/67 10/18/19 135/70 She was advised to monitor her blood [...] to prevent these developments. Recommend she continue with hydrochlorothiazide 25 mg 1 tablet once daily and olmesartan 20 mg 1 tablet once daily. Assessment & Plan (09/21/2019 4:07 PM DISBURSING OFFICER): Current disease status: Stable and Controlled. BP Readings from Last 3 Encounters: 09/21/19 124/80 07/26/19 132/72 05/04/19 (!) 140/72 She was advised to monitor her blood [...] to prevent these developments. Recommend she continue with IRBESARTAN 300 mg 1 tablet once daily and hydrochlorothiazide 25 mg 1 tablet once daily. Assessment & Plan (03/16/2019 10:17 AM CDT): Current disease status: Stable. BP Readings from Last 3 Encounters: 03/16/19 132/72 03/08/19 (!) 144/73 01/25/19 (!) 150/76 She was advised to monitor her blood pressure. If she would consistently have systolic readings in excess of 140 and/or diastolic readings consistently above 90 she was advised to notify the office. Recommend eating a heart healthy diet limiting daily salt intake to 2000 gm. Recommend trying to maintain a healthy body [...] to prevent these developments. Recommend she continue with IRBESARTAN 300 mg 1 tablet once daily and hydrochlorothiazide 25 mg 1 tablet once daily. Assessment & Plan (12/24/2018 2:09 PM DISBURSING OFFICER): Current disease status: Stable. BP Readings from Last 3 Encounters: 12/24/18 132/68 12/14/18 (!) 148/74 12/01/18 120/57 She was advised to monitor her blood pressure. If she would consistently have systolic readings in excess of 140 and/or diastolic readings consistently above 90 she was advised to notify the office. Recommend eating a heart healthy diet limiting daily salt intake to 2000 gm. Recommend trying to maintain a healthy body [...] to prevent these developments. Recommend she continue with hydrochlorothiazide 25 mg 1 tablet once daily and IRBESARTAN 300 mg 1 tablet once daily. Assessment & Plan (2018 10:21 AM DISBURSING OFFICER): Current disease status: Stable and Suboptimal control. BP Readings from Last 3 Encounters: 09/29/18 (!) 142/94 07/21/18 (!) 149/73 06/22/18 136/76 She was advised to monitor her blood pressure. If she would consistently have systolic readings in excess of 140 and/or diastolic readings consistently above 90 she was advised to notify the office. Recommend eating a heart healthy diet limiting daily salt intake to 2000 gm. Recommend trying to maintain a healthy body [...] to prevent these developments. Recommend she continue with IRBESARTAN 300 mg 1 tablet once daily and hydrochlorothiazide 25 mg 1 tablet once daily. If she continues to run borderline blood pressures we may need to change her regimen. Assessment & Plan (03/24/2018 9:43 AM CDT): Current disease status: Stable. BP Readings from Last 3 Encounters: 03/24/18 (!) 143/88 09/23/17 (!) 178/99 03/18/17 (!) 125/90 She was advised to monitor her blood pressure. If she would consistently have systolic readings in excess of 140 and/or diastolic readings consistently above 90 she was advised to notify the office. Recommend eating a heart healthy diet limiting daily salt intake to 2000 gm. Recommend trying to maintain a healthy body [...] to prevent these developments. Recommend she continue with IRBESARTAN 300 mg once daily and hydrochlorothiazide 25 mg 1 tablet once daily. Assessment & Plan (09/23/2017 9:36 AM DISBURSING OFFICER): Current disease status: Suboptimal control. BP Readings from Last 3 Encounters: 09/23/17 (!) 178/99 03/18/17 (!) 125/90 09/17/16 128/77 She was advised to monitor her blood pressure. If she would consistently have systolic readings in excess of 140 and/or diastolic readings consistently above 90 she was advised to notify the office. Recommend eating a heart healthy diet limiting daily salt intake to 2000 gm. Recommend trying to maintain a healthy body [...] to prevent these developments. Recommend she continue with irbesartan 300 mg once daily. Recommend the addition of hydrochlorothiazide 25 mg one tablet once daily. She should have a blood pressure check in one month. Assessment & Plan (03/18/2017 10:10 AM CDT): Current disease status: Stable BP Readings from Last 3 Encounters: 03/18/17 (!) 125/90 09/17/16 128/77 08/08/16 (!) 142/82 She was advised to monitor her blood pressure. If she would consistently have systolic readings in excess of 140 and/or diastolic readings consistently above 90 she was advised to notify the office. Recommend eating a heart healthy diet limiting daily salt intake to 2000 gm. Recommend trying to maintain a healthy body [...] to prevent these developments. Recommend she continue with irbesartan 300 mg once daily. Assessment & Plan (09/17/2016 9:58 AM CDT): Current disease status: Stable and Controlled BLOOD PRESSURE BP Readings from Last 3 Encounters: 09/17/16 128/77 08/08/16 142/82 05/07/16 158/82 Known diagnosis of HTN.. She was advised to monitor her blood pressure. If she would consistently have systolic readings in excess of 140 and/or diastolic readings consistently above 90 she was advised to notify the office. Recommend eating a heart healthy diet limiting daily salt intake to 2000 gm. Recommend trying to maintain a healthy body [...] to prevent these developments. Recommend she continue with irbesartan. Assessment & Plan (05/07/2016 3:03 PM CDT): Current disease status: Suboptimal control BLOOD PRESSURE BP Readings from Last 3 Encounters: 05/07/16 158/82 03/19/16 161/70 10/16/15 142/52 Known diagnosis of HTN.. She was advised to monitor her blood pressure. If she would consistently have systolic readings in excess of 140 and/or diastolic readings consistently above 90 she was advised to notify the office. Recommend eating a heart healthy diet limiting daily salt intake to 2000 gm. Recommend trying to maintain a healthy body [...] critical to prevent these developments. Recommend she increase irbesartan 300 mg once daily. She should have blood pressure check in about one month. Assessment & Plan (03/19/2016 9:50 AM CDT): Current disease status: Stable and Suboptimal control BLOOD PRESSURE BP Readings from Last 3 Encounters: 03/19/16 161/70 10/16/15 142/52 03/28/15 125/82 Known diagnosis of HTN.. She was advised to monitor her blood pressure. If she would consistently have systolic readings in excess of 140 and/or diastolic readings consistently above 90 she was advised to notify the office. Recommend eating a heart healthy diet limiting daily salt intake to 2000 gm. Recommend trying to maintain a healthy body [...] critical to prevent these developments. Recommend she discontinue lisinopril. Would recommend a trial of irbesartan 150 mg once daily. Assessment & Plan (03/28/2015 1:39 PM CDT): BLOOD PRESSURE BP Readings from Last 3 Encounters: 03/28/15 125/82 12/27/14 140/80 03/29/14 103/74 Known diagnosis of HTN, continue current plan.. She was advised to monitor her blood pressure. If she would consistently have systolic readings in excess of 140 and/or diastolic readings consistently above 90 she was advised to notify the office. Recommend eating a heart healthy diet limiting daily salt intake to 2000 gm. Recommend trying to maintain a healthy body [...] to prevent these developments. Recommend she continue with lisinopril. Pure hypercholesterolemia 03/29/2014 Assessment & Plan (01/09/2021 10:53 AM DISBURSING OFFICER): Current disease status: Stable She was advised [...] laboratory studies performed in the near future. Assessment & Plan (07/10/2020 10:56 AM CDT): Current disease status: Stable She was advised [...] continue with her dietary efforts. She will have laboratory studies performed prior to her next visit. Assessment & Plan (02/27/2020 11:19 AM CDT): Current disease status: Stable She was advised [...] Recommend she continue with her dietary efforts. Assessment & Plan (01/10/2020 9:30 AM DISBURSING OFFICER): Current disease status: Stable She was advised [...] Recommend she continue with her dietary efforts. Assessment & Plan (09/21/2019 4:06 PM DISBURSING OFFICER): Current disease status: Stable She was advised [...] Recommend she continue with her dietary efforts. Assessment & Plan (03/16/2019 10:17 AM CDT): Current disease status: Stable She was advised [...] Recommend she continue with her dietary efforts. Assessment & Plan (12/24/2018 2:08 PM DISBURSING OFFICER): Current disease status: Controlled She was advised to be vigilant of [...] Recommend she continue with her dietary efforts. Assessment & Plan (2018 10:21 AM DISBURSING OFFICER): Current disease status: Stable She was advised to be vigilant of her diet especially with regards to reducing foods containing saturated fat, cholesterol, simple sugars, refined carbohydrates, and process [id number]|2025-03-28 10:23:00|2025-03-28 10:22:00|XMS_ITS|BKG DAEMON|External Medical Summaries|[id number]|" Continuity of Care Document (C-CDA R2.1) (Encounter date: 05/06/2007 02:52 PM) Created on: March 28, 2025 Lorri Miller : 1950 Sex: Female Author Organization [facility] Address [address] [place] [phone] Phone Care Team Providers Care Research Home Economist Name Role Phone Dayday Smith MD, FACS Unavailable Unavailab le Procedures Procedure Date Echo Exam Of Eye-Professional 7 Remove Cataract, Insert Lens Office/outpatient Visit, Est Advance Directives Directive Yes / No Effective Date File Name No Information Encounters Encounter Description Practice Location Reason(s) For Visit Diagnoses Date Provider Providers [facility]ied [facility], [address], [place], [place], [id number], [place] tel:[phone] [facility] No Information [address] [place]. [address], [address], [place], [place], [id number], [place]. tel:[phone] Referring Provider: Rashawn Berger, [address] [place], [address]. tel:[phone] [facility], [address] [place] [address] [address], [place], [place], [id number], [place] tel:[phone] [facility] No Information 7 Sarah Dayday. [facility] [address] [facility], [address], [place], [place], [id number], [place]. tel:[phone] Referring Provider: Rashawn Berger, [address] [place], [address]. tel:[phone] Office/outpa tient Visit, [facility], [address] [place], [place] [address], [place], [place], [id number], [place] tel:[phone] [facility] No Information [address]. [facility] [address] [facility], [address], [place], [place], [address], [place]. tel:[phone] Referring Provider: Rashawn Berger, [address] [place], [address]. tel:[phone] Family History Family Member Type Diagnosis Age At Onset No Information Payers Payer name Insurance type Covered republican ID Authoriza tion(s) No Information Social History Type Description Quantity Date Captured Comments Sex Female Smoking Status No Information Chief Complaint And Reason For Visit No Information Reason For Referral Reason For Referral No Information History Of Present Illness Encounter Date Complaint History Of Prese nt Illness No Information Functional Status Date Functional Assessmen t No Information Instructions Date Instruction Additional Infor mation No Information Assessments Type Assessment Date No Information Patient Care Teams Name Effective Dates (start - stop) Status Members No Information "
== END 2025-03-28 10:11 | disposition home or self-care (01) ==
PROVIDERS: PCP Student in an Organized Health Care Education/Training Program; Visit Provider Student in an Organized Health Care Education/Training Program
DX: Z12.31 Encounter for screening mammogram for malignant neoplasm of breast (principal)
CPT/HCPCS: 77063; 77067